=== PATIENT | female | born 1960 | race Caucasian/White ===

== ENCOUNTER 2022-09-04 14:12 | Emergency (ER) | payer OTHER, SELFPAY ==
[2022-09-04 14:13] VITALS: BP 150/73; PULSE 74; RESP 16; TEMP 36.4; O2SAT 98; BMI 28.0
--- NOTE | 2022-09-04 15:25 | EKG12_ITS ---
Test Reason : Blood Pressure : / mmHG Vent. Rate : 073 BPM Atrial Rate : 073 BPM P-R Int : 104 ms QRS Dur : 088 ms QT Int : 376 ms P-R-T Axes : 034 046 024 degrees QTc Int : 414 ms Sinus rhythm with short DC with occasional Premature ventricular complexes Nonspecific ST and T wave abnormality Abnormal ECG Confirmed by MALU PETERSON, CHANA ([id number]), metropolitan editor JOSE ANGEL SERNA ([id number]) on 09/05/2022 1:41:29 PM Referred By: Confirmed By:SHAWNA TORIBIO MD
--- NOTE | 2022-09-04 15:26 | EDS_ITS ---
HPI History of Present Illness Chief Complaint: Back Informant: patient Onset/Context/Timing Onset: Today Narrative Narrative: Patient present secondary to left upper back pain that was present when she woke this morning. She states pain is worse with deep breath. She is noting it starting to wrap around the left side of her chest. She also complains of having a mild headache the past few days. She is had intermittent left arm pain for the past year or so but was diagnosed with bursitis in her left shoulder. She denies any recent injury or change in activity. She presented due to concerns for this being atypical presentation of heart disease. [facility] Medical History Electronic cigarette use Fatigue Hyperlipemia Home Medications cetirizine 10 mg capsule (Zyrtec) 10 mg PO DAILY 10/17/19 [History Last Taken Unknown] cyclobenzaprine 10 mg tablet 10 mg PO BID PRN muscle spasm #10 tabs 09/04/22 [Rx Last Taken Unknown] naproxen 500 mg tablet (Naprosyn) 500 mg PO BID PRN pain #20 tabs 09/04/22 [Rx Last Taken Unknown] Allergy/AdvReac Type Severity Reaction Status Date / Time No Known Allergies Allergy Verified 09/04/22 14:15 Family History Other Breast cancer Leukemia Social History Smoking Status: Current every day smoker tobacco type: e-cigarettes ROS ROS ED Constitutional Constitutional ED: Denies chills or fever(s) Eyes Eyes: Denies change in vision or discharge from eye(s) ENT ENT ED: Denies discharge from eye(s), rhinorrhea or sore throat Cardiovascular Cardiovascular: Denies chest pain or palpitations Respiratory/Chest Respiratory/Chest: Denies cough or dyspnea Gastrointestinal Gastrointestinal: Denies abdominal pain, diarrhea, nausea or vomiting Genitourinary Genitourinary ED: Denies difficulty urinating or dysuria Musculoskeletal Musculoskeletal: Reports back pain and extremity pain Integumentary Denies Abrasions or rash Neurologic Neurologic: Reports headache(s); Denies weakness Psychiatric Psychiatric: Denies anxiety or depression Allergic/Immunologic Allergic/Immunologic ED: Denies urticaria EXAM Physical Exam Const Vital Signs: 09/04/22 14:13 Temperature 97.6 F L Temperature Source Temporal Pulse Rate 74 Respiratory Rate 16 Blood Pressure 150/73 H Blood Pressure Mean 98 Pulse Ox 98 Oxygen Delivery Method Room Air Positive well nourished and well developed General Appearance ED: well developed HEENT Reports normocephalic and head/scalp atraumatic Eyes PERRL and EOMs intact bilaterally Neck supple Chest Wall inspection of chest normal and palpation of chest normal Resp normal respiratory effort and clear to auscultation bilaterally Cardio regular rate and regular rhythm GI normal to inspection, nondistended, normoactive bowel sounds Palpation: soft Back/Spine Back/Spine Narrative: Reproducible tenderness in the left thoracic paraspinals. No overlying skin change. Extremity normal to inspection Neuro oriented x3 and no sensory deficits noted Sensorium / Orientation: alert Motor Exam: strength 5/5 throughout Psych mental status grossly normal Skin no rashes or lesions noted MDM MDM MDM Narrative Medical decision making narrative: Patient placed on lemon grower. EKG, chest x-ray, lab work obtained. Patient given a dose of IV Toradol. Lab Data Attestation: I reviewed the patient's lab results. Labs: Laboratory Results - last 24 hr 09/04/22 09/04/22 09/04/22 15:32 15:32 15:32 WBC 6.2 RBC 4.54 Hgb 12.4 Hct 39.1 MCV 86.1 MCH 27.3 MCHC 31.7 L RDW Std Deviation 42.8 RDW Coeff of Christopher 13.6 Plt Count 230 MPV 11.4 Immature Gran % (Auto) 0.200 Neut % (Auto) 47.4 Lymph % (Auto) 41.1 H [place] % (Auto) 6.7 Eos % (Auto) 3.6 Baso % (Auto) 1.0 Absolute Neuts (auto) 2.9 Absolute Lymphs (auto) 2.53 Nucleated RBC % 0 D-Dimer Quant (PE/DVT) 0.33 Sodium 142 Potassium 4.0 Chloride 112 H Carbon Dioxide 27.0 Anion Gap 3 L BUN 18 Creatinine 0.98 Estim Creat Clear Calc 56.43 Est GFR (MDRD) Af Amer 74 Est GFR (MDRD) Non-Af 61 BUN/Creatinine Ratio 18.3 Glucose 96 Calcium 8.8 Troponin I High Sens 4 Radiography Chest X-Ray - ED: 1 View, Read by ED Physician, Normal, Heart, Lungs and Mediastinum Diagnostic Testing: Clinical Impression(s) from Imaging Studies Chest X-Ray 09/04/22 15:35 IMPRESSION: Blunting of the left costal phrenic angle with mild increased markings at the left lung base suggestive of mild left basilar atelectasis. Electronically Signed: Bryson Torres MD at 15:47 EST , EKG Initial EKG: Attestation: I personally reviewed and interpreted this EKG as follows: Interpretation: Sinus Rhythm (Sinus at 73 with no acute ischemia. Single PVC noted.) Treatment and Re-Evaluation Narrative: Repeat evaluation patient resting more comfortably. Test results discussed with patient as well as family at bedside. I do believe the patient's pain is musculoskeletal in nature. Out of an abundance of caution work-up to exclude coronary vascular disease as well as pulmonary embolism was undertaken and work- up was unremarkable. Patient be treated with naproxen and Flexeril. Return instructions given. Discharge Plan Triage Chief Complaint: Back ED Provider: Radha Chow Dx/Rx/DC Orders Clinical Impression: Musculoskeletal back pain Instructions: ED Back Sprain/Strain Prescriptions: New naproxen [Naprosyn] 500 mg tablet 500 mg PO BID PRN (Reason: pain) Qty: 20 0RF cyclobenzaprine 10 mg tablet 10 mg PO BID PRN (Reason: muscle spasm) Qty: 10 0RF No Action Zyrtec 10 mg capsule 10 mg PO DAILY Primary Care Provider: Alexa Lugo NP Referrals: NOT,DEFINED [Non-Staff] - Alexa Lugo NP, SYSTEM ADMINISTRATION ADVISOR-C [Primary Care Provider] - 1 Week if not improving Disposition Disposition: Home, Self Care
--- NOTE | 2022-09-04 15:35 | RAD_ITS ---
STUDY: X-RAY CHEST REASON FOR EXAM: Female, 61 years old. Left-sided upper back pain. Left arm pain. TECHNIQUE: Single AP portable view of the chest. COMPARISON: None. FINDINGS: EKG electrodes are seen. Blunting of the left costophrenic angle. Minimal increased markings at the left lung base suggestive of probably atelectasis. There is no demonstrated pleural abnormality. Normal size heart. Normal mediastinum and luis alberto. Normal visualized pulmonary arteries. Normal visualized aortic arch and descending thoracic aorta. Normal visualized thoracic spine. Normal visualized ribs, clavicles, and shoulders. There is no demonstrated abnormality of the visualized soft tissue structures of the upper abdomen. RAD/Chest 1 View (Portable) IMPRESSION: Blunting of the left costal phrenic angle with mild increased markings at the left lung base suggestive of mild left basilar atelectasis. Electronically Signed: Bryson Torres MD at 15:47 EST ,
[2022-09-04] MEDS: Ketorolac 15 MG/ML Vial IV (15:38)
[2022-09-04 15:43] LABS: Absolute Lymphocyte Count 2.53 X10^3/uL (0.83-4.51); Absolute Neutrophil Count 2.9 X10^3/uL (2.0-7.7); Basophil# 0.06 X10^3/uL; Eosinophil# 0.22 X10^3/uL; Eosinophils% 3.6 % (0-5); Hematocrit 39.1 % (37-47); Hemoglobin 12.4 g/dL (12.0-15.0); Lymphocyte # 2.53 X10^3/ul (0.83-4.51); Lymphocyte % 41.1 % (19-41); Mean Corp Hgb Conc 31.7 g/dL (32-36); Mean Corpuscular Hgb 27.3 pg (27.0-32.0); Mean Corpuscular Volume 86.1 fL (81-99); Mean Platelet Vol. 11.4 fl (6.2-12.0); Monocyte# 0.41 X10^3/uL; Monocyte% 6.7 % (0-10); NRBC Flagged by Analyzer 0 % (0-5); Neutrophil # 2.92 X10^3/uL (2.7-7.7); Neutrophil % 47.4 % (47-70); Platelet Count 230 K/mm3 (150-450); RBC Distribution Width CV 13.6 % (11.6-14.6); RBC Distribution Width SD 42.8 fl (35.1-43.9); Red Blood Count 4.54 M/mm3 (4.2-5.4); White Blood Count 6.2 K/mm3 (4.4-11.0)
[2022-09-04 16:04] LABS: D-Dimer Quantitative (DVT/PE) 0.33 FEU/ug/m (0.27-0.49)
[2022-09-04 16:11] LABS: Anion Gap 3 (5-15); BUN 18 mg/dL (7-18); BUN/Creat Ratio 18.3 RATIO (10-20); Calcium,Total 8.8 mg/dL (8.5-10.1); Chloride 112 mmol/L (98-107); Creatinine, Serum 0.98 mg/dL (0.55-1.02); EST Glomerular Filtration Rate 61 mL/min (>60); Est Glom Filt Rate - Afr Amer 74 mL/min (>60); Estimated Creatinine Clearance 56.43 ml/min; Glucose 96 mg/dL (74-106); Sodium Level 142 mmol/L (136-145); Troponin-I HS 4 pg/mL (3.0-54.0)
== END 2022-09-04 16:27 | disposition home or self-care (01) ==
PROVIDERS: Emergency Provider Emergency Medicine; PCP Nurse Practitioner Family; Visit Provider Emergency Medicine
DX: M54.9 Dorsalgia, unspecified (principal); E78.5 Hyperlipidemia, unspecified; F17.290 Nicotine dependence, other tobacco product, uncomplicated; M75.52 Bursitis of left shoulder
CPT/HCPCS: 71045; 80048; 84484; 85025; 85379; 93005; 96374; 99284; A4216

== ENCOUNTER → 2025-03-25 | Outpatient (CLI) | payer OTHER, SELFPAY | END | disposition home or self-care (01) | LOC: LABSPEC 11:11 | PROVIDERS: PCP Nurse Practitioner Family; Visit Provider Physician Assistant Surgical | DX: R35.0 Frequency of micturition (principal) | CPT/HCPCS: 87086; 87088 ==